=== PATIENT | female | born 1940 ===

== ENCOUNTER 2023-08-09 15:18 | Outpatient (CLI) | payer MEDICARE, OTHER | END 2023-08-09 15:19 | disposition home or self-care (01) | LOC: CSHWCC 15:18 | PROVIDERS: ATTEND Nurse Practitioner Family | DX: I87.313 Chronic venous hypertension (idiopathic) with ulcer of bilateral lower extremity (principal); L97.312 Non-pressure chronic ulcer of right ankle with fat layer exposed; L97.322 Non-pressure chronic ulcer of left ankle with fat layer exposed; I73.9 Peripheral vascular disease, unspecified; F02.A0 Dementia in other diseases classified elsewhere, mild, without behavioral disturbance, psychotic disturbance, mood disturbance, and anxiety | CPT/HCPCS: 97597 ==